=== PATIENT | male | born 1945 | race Caucasian/White ===

== ENCOUNTER 2016-04-05 14:09 | Inpatient (IN) | payer OTHER, MEDICARE ==
[~2016-04-05] VITALS: Ht 185.4 cm; Wt 70.6 kg
[2016-04-11] MEDS ORDERED: GLIP5TAB8 PO (10:10)
[2016-04-11] MEDS ORDERED: METF850T PO (10:10)
[2016-04-11] MEDS ORDERED: VITA100036 PO (10:10)
[2016-04-13] MEDS ORDERED: SODIUM CHLORID 0.9% 500 ML IV SCH (11:00)
[2016-04-13] MEDS ORDERED: ceFAZolin 1,000 MG/NS 100 ML IV SCH ×2 (11:00)
[2016-04-13] MEDS ORDERED: LACTATED RINGER'S 1000 ML IV SCH (11:00)
[2016-04-13] MEDS ORDERED: INSULIN HUMAN REGULAR 1,000 UNITS/10 ML VIAL SQ PRN (11:00)
[2016-04-13] MEDS ORDERED: METOPROLOL TARTRATE 25 MG TAB PO PRN (11:00)
[2016-04-13] MEDS ORDERED: DEXT 5%-NACL 0.9% 1000 ML INJ 1,000 ML IV SCH (11:00)
[2016-04-13] MEDS ORDERED: METRONIDAZOLE 500 MG/100 ML ISONTONIC SOLN IV SCH (11:00)
[2016-04-13] MEDS ORDERED: ALVIMOPAN 12 MG CAPSULE ONE (11:11)
[2016-04-13 11:13] VITALS: BP 157/97; PULSE 78; RESP 20; TEMP 97.6; O2SAT 99
[2016-04-13] MEDS ORDERED: ALVIMOPAN 12 MG CAPSULE - On Call PO SCH (11:45)
[2016-04-13] MEDS ORDERED: NEOSTIGMINE 3 MG/3 ML SYR IV ONE (12:00)
[2016-04-13] MEDS ORDERED: PROPOFOL 200 MG/20 ML AMP IV ONE (12:00)
[2016-04-13] MEDS ORDERED: SODIUM CHLOR 0.9% 1000 ML INJ 1,000 ML IV ONE (12:00)
[2016-04-13] MEDS ORDERED: ONDANSETRON HCL 4 MG/2 ML VIAL IV PUSH ONE (12:00)
[2016-04-13] MEDS ORDERED: fentaNYL CITRATE 250 MCG/5 ML AMP ONE (13:42)
[2016-04-13] MEDS ORDERED: ACETAMINOPHEN 1000 MG/100 ML VIAL IV ONE (13:42)
[2016-04-13] MEDS ORDERED: MIDAZOLAM HCL 2 MG/2 ML VIAL ONE (13:42)
[2016-04-13] MEDS ORDERED: FAMOTIDINE 20 MG/2 ML VIAL ONE (13:42)
[2016-04-13] MEDS ORDERED: HYDROmorphone HCL PF 2 MG/ML VIAL ONE (13:42)
[2016-04-13] MEDS ORDERED: GLUCAGON 1 MG/ML VIAL OTHER PRN (16:30)
[2016-04-13] MEDS ORDERED: ACETAMINOPHEN/HYDROcodone 325 MG/5 MG TAB PO PRN (16:30)
[2016-04-13] MEDS ORDERED: ZOLPIDEM TARTRATE 5 MG TAB PO PRN (16:30)
[2016-04-13] MEDS ORDERED: DEXTROSE 50% IN WATER 50 ML VIAL(D50) IV PUSH PRN (16:30)
[2016-04-13] MEDS ORDERED: Post-op Orders (for Pharmacy) MISC XX ONE (16:30)
[2016-04-13] MEDS ORDERED: POTASSIUM CHLOR 40 MEQ PREMIX 100 ML IV PRN (16:30)
[2016-04-13] MEDS ORDERED: SODIUM CHLORIDE 0.9% FLUSH 5 ML FLUSH IVF PRN (16:30)
[2016-04-13] MEDS ORDERED: POTASSIUM CHLOR 20 MEQ PREMIX 100 ML IV PRN (16:30)
[2016-04-13] MEDS ORDERED: NALOXONE HCL 0.4 MG/ML AMP IV PRN (16:30)
[2016-04-13] MEDS ORDERED: BENZOCAINE 6 MG/MENTHOL 10 MG LOZENGE SUCK-ON PRN (16:30)
[2016-04-13] MEDS ORDERED: *morphine SULFATE 8 MG/ML PERIprocedure ONLY ONE ×2 (16:38→18:23)
[2016-04-13] MEDS ORDERED: *MEPERIDINE 25 MG INJ VIAL PERIprocedural Use ONLY ONE (16:42)
[2016-04-13] MEDS: ceFAZolin 2 GM PREMIX 50 ML IV SCH (17:00)
[2016-04-13] MEDS ORDERED: D5-LR + KCL 20 MEQ INJ 1,000 ML ONE (17:26)
[2016-04-13 17:29] LABS: AUTOMATED NEUTROPHIL # 8.9 TH/MM3 (1.8-7.7); BASOPHIL # 0.2 TH/MM3 (0-0.2); BASOPHIL % 1.8 % (0.0-2.0); EOSINOPHIL % 0.3 % (0.0-4.0); HEMATOCRIT 36.6 % (39.0-51.0); LYMPH % 5.6 % (9.0-44.0); LYMPHOCYTE # 0.6 TH/MM3 (1.0-4.8); MEAN CELL VOLUME 83.7 FL (80.0-100.0); MEAN CORPUSCULAR HEMOGLOBIN 28.5 PG (27.0-34.0); MEAN CORPUSCULAR HGB CONC 34.1 % (32.0-36.0); MONO % 3.4 % (0.0-8.0); NEUT % 88.9 % (16.0-70.0); PLATELET COUNT 158 TH/MM3 (150-450); RED BLOOD COUNT 4.37 MIL/MM3 (4.50-5.90); RED CELL DISTRIBUTION WIDTH 14.9 % (11.6-17.2)
[2016-04-13 17:32] LABS: HEMO FLAGS AUTO DIFF
[2016-04-13] MEDS ORDERED: NS + KCL 20 MEQ INJ 1,000 ML ONE (17:35)
[2016-04-13 17:58] LABS: PLATELET ESTIMATE SMEAR NORMAL (NORMAL); PLATELET MORPHOLOGY NORMAL (NORMAL); SCAN/DIFF AUTO DIFF CONFIRMED
[2016-04-13] MEDS: METOCLOPRAMIDE HCL 10 MG/2 ML VIAL IVS SCH (18:00)
[2016-04-13] MEDS: POTASSIUM CHLORIDE INJ 20 MEQ in LACTATED RINGER'S 1000 ML INJ 1,000 ML IV SCH (18:00)
[2016-04-13 18:03] LABS: BICARBONATE 26.1 MEQ/L (21.0-32.0); POTASSIUM 3.1 MEQ/L (3.5-5.1)
[2016-04-13] MEDS: MORPHINE SULFATE 30 MG/30 ML PCA IV SCH (18:55)
[2016-04-13] MEDS ORDERED: *ONDANSETRON 4 MG VIAL PERIprocedural Use ONLY ONE (20:27)
[2016-04-13] MEDS: metroNIDAZOLE 500 MG INJ 100 ML IV SCH (20:46)
[2016-04-13] MEDS: SODIUM CHLORIDE 0.9% FLUSH 5 ML FLUSH IVF SCH (20:47)
[2016-04-13] MEDS: FUROSEMIDE 20 MG/2 ML VIAL IV SCH (20:49)
[2016-04-13] MEDS: INSULIN NovoLIN REGULAR SUPPLEMENTAL SCALE SQ SCH (21:00)
[2016-04-13] MEDS ORDERED: *PROMETHAZINE 25 MG/ML VIAL PERIprocedural use ONLY ONE (21:08)
[2016-04-13 21:30] VITALS: BP 153/80; PULSE 93; RESP 18; TEMP 97.5; O2SAT 98
[2016-04-13 22:00] VITALS: PULSE 96
[2016-04-13 23:00] VITALS: PULSE 97
[2016-04-14] VITALS (21 sets, daily range): BP systolic 128–164; BP diastolic 67–88; PULSE 93–100; RESP 18–20; TEMP 97.5–98.7; O2SAT 94–98
[2016-04-14] MEDS: ceFAZolin 2 GM PREMIX 50 ML IV SCH ×2 (01:00→09:00)
[2016-04-14] MEDS: POTASSIUM CHLORIDE INJ 20 MEQ in LACTATED RINGER'S 1000 ML INJ 1,000 ML IV SCH ×2 (05:06→12:42)
[2016-04-14] MEDS: metroNIDAZOLE 500 MG INJ 100 ML IV SCH ×2 (05:07→12:26)
[2016-04-14] MEDS: PCA - TOTAL MG MORPHINE DELIVERED PER SHIFT SCH ×3 (05:20→22:00)
[2016-04-14 05:41] LABS: AUTOMATED NEUTROPHIL # 9.5 TH/MM3 (1.8-7.7); BASOPHIL % 0.1 % (0.0-2.0); HEMATOCRIT 34.8 % (39.0-51.0); LYMPH % 3.5 % (9.0-44.0); LYMPHOCYTE # 0.4 TH/MM3 (1.0-4.8); MEAN CELL VOLUME 82.6 FL (80.0-100.0); MEAN CORPUSCULAR HEMOGLOBIN 28.4 PG (27.0-34.0); MEAN CORPUSCULAR HGB CONC 34.4 % (32.0-36.0); NEUT % 88.4 % (16.0-70.0); PLATELET COUNT 180 TH/MM3 (150-450); RED BLOOD COUNT 4.21 MIL/MM3 (4.50-5.90); RED CELL DISTRIBUTION WIDTH 15.1 % (11.6-17.2); WHITE BLOOD COUNT 10.8 TH/MM3 (4.0-11.0)
[2016-04-14 05:43] LABS: HEMO FLAGS AUTO DIFF
[2016-04-14 05:52] LABS: POTASSIUM 3.9 MEQ/L (3.5-5.1)
[2016-04-14] MEDS: METOCLOPRAMIDE HCL 10 MG/2 ML VIAL IVS SCH ×4 (06:42→18:00)
[2016-04-14] MEDS: INSULIN NovoLIN REGULAR SUPPLEMENTAL SCALE SQ SCH ×4 (06:43→21:53)
[2016-04-14 07:59] LABS: SCAN/DIFF AUTO DIFF CONFIRMED
[2016-04-14] MEDS: FUROSEMIDE 20 MG/2 ML VIAL IV SCH ×2 (09:00→21:17)
[2016-04-14] MEDS: PANTOPRAZOLE SODIUM 40 MG VIAL IVP SCH (09:00)
[2016-04-14] MEDS ORDERED: ALVIMOPAN 12 MG CAPSULE - Post-op dosing PO SCH (09:00)
[2016-04-14] MEDS: ALVIMOPAN 12 MG CAPSULE PO SCH ×2 (12:42→22:21)
[2016-04-14] MEDS: SODIUM CHLORIDE 0.9% FLUSH 5 ML FLUSH IVF SCH ×2 (12:43→21:17)
--- NOTE | 2016-04-14 14:43 | MP ---
cc: GILDA MOE MD,AGNIESZKA TORRES,KARSON CHAPPELL,ABBE Qureshi M.D. DATE OF SURGERY: 04/13/2016 PREOPERATIVE DIAGNOSIS Rectal carcinoma. POSTOPERATIVE DIAGNOSIS Rectal carcinoma. PROCEDURE Rectosigmoidectomy with very low anterior resection and anastomosis. Diverting loop ileostomy ANESTHESIA Endotracheal. SURGEON Dr. Chappell WATER RESOURCE ENGINEER SURGEON Dr. Arceo ESTIMATED BLOOD LOSS 100 cc. OPERATING TIME One hour and 35 minutes. 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 I first saw him back in January and then did colonoscopy on him about two weeks ago to ascertain whether there was any residual carcinoma present. At that time there was ulceration in the mid rectum, approximately 5 cm long. Multiple biopsies were taken that were benign but this appeared to be still bulky in the wall of the rectum. For this reason resection was recommended. At surgery exploration of the abdominal cavity revealed that the liver was palpably normal other than multiple small liver cysts throughout the liver. The gallbladder was palpably normal as was the colon and small bowel. The lesion was palpable in the cul-de-sac. Dissection was taken down to the pelvic floor and a near coloanal anastomosis was done with an Ethicon ILS 33 stapler. A diverting loop ileostomy was also done. OPERATIVE TECHNIQUE The patient was placed on the table in the supine position. After adequate general endotracheal anesthesia the legs were placed in the perineolithotomy position and the abdomen and perineum were prepped and draped in the usual manner. A transverse infraumbilical skin incision was made, carried down through subcutaneous tissue and the rectus muscles and the peritoneal cavity was entered with the above-mentioned findings. Our attention was turned to the sigmoid colon which was extremely redundant and it was mobilized along its peritoneal reflection. The left ureter was identified and protected at all times. The dissection was taken up to the splenic flexure but not including the splenic flexure. Next, the superior hemorrhoidal vessels were taken and they were doubly clamped, cut and doubly ligated with 0 Vicryl ligature. The inferior mesenteric vein was left intact. Next, the lateral pelvic peritoneum was incised bilaterally and the retrorectal space was entered and the retrorectal space was dissected down posteriorly to the rectal floor and then laterally. The seminal vesicles were identified in the right and left anterior positions and dissected free of the rectum and the rectum was mobilized anteriorly posterior to the prostate gland and the dissection was taken down to the pelvic floor. Dr. Arceo then did sigmoidoscopy examination identifying the lowermost border of the tumor in the mid rectum and we went approximately 4-5 cm below this area and the mesorectum was basically totally excised and the rectum was cleared and the rectum was closed with a TX 60 green staple height stapler and the rectum was divided. Next, the sigmoid colon marginal vessels were clamped, cut and ligated and the pursestring stapling device was placed on the sigmoid colon and the specimen was divided and then opened by Dr. Arceo identifying the lesion with adequate 4-5 cm margin. Next, the anvil of the 33 EEA was placed in the proximal bowel. The pursestring was tied. Dr. Arceo then went below with the EEA instrument and placed it into the rectum, trocar brought out through the anterior portion of the staple line and then the instrument was connected, closed and fired creating the circular anastomosis. Dr. Arceo then did proctosigmoidoscopy examination insufflating air into the rectum and saline solution in the pelvis and no air leaks were identified. The blood supply was excellent. After hemostasis was obtained some Fibrillar was placed posterior to the prostate and laterally. Irrigation of the pelvis was done with about three liters of saline solution and aspirated dry. A flat Royer drain was placed in the pelvis posterior to the rectum and brought out through a separate stab wound in the right lower quadrant. A completely diverting loop ileostomy was done in the right upper quadrant stapling the distal limb of the ileum closed with a TX 60 blue staple height stapler. A stoma site was created and the ileum was brought out through the stoma site. Next, the bowels were replaced in the abdominal cavity in an coal loader manner and the abdominal cavity was closed in layers using double-stranded #1 PDS for the posterior rectus sheath. The muscle layer was irrigated thoroughly with saline solution and the anterior rectus sheath was closed with double-stranded #1 PDS as well. The subcutaneous tissue was irrigated thoroughly with saline solution and then the skin was closed with running 3-0 Vicryl subcuticular suture. The ileostomy was matured with interrupted 3-0 Vicryl sutures and a 57 mm ileostomy appliance was placed. Sponge, needle and instrument counts were reported as correct. The estimated blood loss was 100 cc. Operating time was one hour and 35 minutes. The patient tolerated the procedure well and left the operating room in good condition. MD ANTOINETTE Almodovar/AXEL /4:50 PM /2:12 PM MTDLynda
--- NOTE | 2016-04-14 16:25 | HHI.PR ---
Subjective Remarks No more Nausea. No Vomiting. Stooling thru Ileostomy. Tolerating CLD Objective Vital Signs Date Time Temp Pulse Resp B/P Pulse Ox O2 Delivery O2 Flow Rate FiO2 04/14/16 11:50 97 04/14/16 07:40 96 21 04/14/16 07:21 98.5 98 18 142/72 97 04/14/16 06:00 97 04/14/16 05:20 18 04/14/16 05:00 97 04/14/16 04:00 97.5 97 18 150/74 97 04/14/16 04:00 96 04/14/16 03:00 100 04/14/16 02:00 98 04/14/16 01:00 97 04/14/16 00:00 96 04/14/16 00:00 97.9 97 18 164/88 98 04/13/16 23:00 97 04/13/16 22:00 96 04/13/16 21:30 93 04/13/16 21:30 97.5 93 18 153/80 98 04/13/16 21:00 97.8 97 15 153/89 98 Nasal Cannula 3 04/13/16 20:00 97 15 158/99 98 Nasal Cannula 3 04/13/16 19:30 97 15 164/91 98 Nasal Cannula 3 04/13/16 19:00 94 15 168/89 98 Nasal Cannula 3 04/13/16 18:55 14 04/13/16 18:30 90 16 167/86 99 Nasal Cannula 3 04/13/16 18:00 85 16 178/93 99 Nasal Cannula 3 04/13/16 17:45 80 16 173/93 99 Nasal Cannula 3 04/13/16 17:30 81 16 173/89 99 Nasal Cannula 3 04/13/16 17:15 79 15 180/90 98 Nasal Cannula 3 04/13/16 17:00 76 15 174/85 98 Nasal Cannula 3 04/13/16 16:41 97.3 77 14 159/76 98 Nasal Cannula 3 I/O 04/13/16 04/13/16 04/13/16 04/14/16 04/14/16 04/14/16 07:00 15:00 23:00 07:00 15:00 23:00 Intake Total 2000 ml 1292 ml Output Total 750 ml 1900 ml Balance 1250 ml -608 ml Intake Oral 0 ml IV Total 1292 ml Other 2000 ml Output Urine Total 650 ml 1800 ml Stool Total 50 ml Drainage Total 50 ml Estimated Blood Loss 100 ml Result Diagram: 04/14/1643904/14/16439 Objective Remarks VS-S Abd: flat,soft,dressing dry I&Os-OK Labs-OK Assessment and Plan Assessment and Plan Stable POD#1 Transfer to 7N,Decrease IVs,Ambulate, Remove SIGNAL INTELLIGENCE/ELECTRONIC WARFARE and bustamante tomorrow. FLD ordered for AM. Harry Chappell MD Apr 14, 2016 16:25
[2016-04-14] MEDS: ONDANSETRON HCL 4 MG/2 ML VIAL IV PRN (16:30)
[2016-04-14] MEDS: MORPHINE SULFATE 30 MG/30 ML PCA IV SCH (21:15)
[2016-04-15] VITALS (7 sets, daily range): BP systolic 140–172; BP diastolic 72–86; PULSE 78–100; RESP 14–20; TEMP 98–98.8; O2SAT 94–97
[2016-04-15] MEDS: METOCLOPRAMIDE HCL 10 MG/2 ML VIAL IVS SCH ×5 (00:32→23:57)
[2016-04-15] MEDS: ONDANSETRON HCL 4 MG/2 ML VIAL IV PRN ×2 (05:28→18:36)
[2016-04-15] MEDS: PCA - TOTAL MG MORPHINE DELIVERED PER SHIFT SCH ×3 (05:29→22:00)
[2016-04-15 05:30] LABS: AUTOMATED NEUTROPHIL # 8.8 TH/MM3 (1.8-7.7); BASOPHIL % 0.2 % (0.0-2.0); EOSINOPHIL % 0.1 % (0.0-4.0); HEMATOCRIT 30.9 % (39.0-51.0); HEMO FLAGS DIFF FINAL; LYMPHOCYTE # 0.5 TH/MM3 (1.0-4.8); MEAN CELL VOLUME 83.8 FL (80.0-100.0); MEAN CORPUSCULAR HEMOGLOBIN 28.6 PG (27.0-34.0); MEAN CORPUSCULAR HGB CONC 34.2 % (32.0-36.0); MONO % 6.7 % (0.0-8.0); PLATELET COUNT 166 TH/MM3 (150-450); RED BLOOD COUNT 3.69 MIL/MM3 (4.50-5.90)
[2016-04-15] MEDS: INSULIN NovoLIN REGULAR SUPPLEMENTAL SCALE SQ SCH ×4 (05:35→23:11)
[2016-04-15 05:51] LABS: BICARBONATE 31.3 MEQ/L (21.0-32.0); POTASSIUM 3.7 MEQ/L (3.5-5.1)
[2016-04-15] MEDS: PANTOPRAZOLE SODIUM 40 MG VIAL IVP SCH (09:07)
[2016-04-15] MEDS: ALVIMOPAN 12 MG CAPSULE PO SCH ×2 (09:07→23:02)
[2016-04-15] MEDS: KETOROLAC TROMETHAMINE 30 MG/ML (IVP) VIAL IVP PRN ×2 (09:07→18:36)
[2016-04-15] MEDS: SODIUM CHLORIDE 0.9% FLUSH 5 ML FLUSH IVF SCH ×2 (09:08→21:11)
[2016-04-15] MEDS: FUROSEMIDE 20 MG/2 ML VIAL IV SCH ×2 (09:08→21:10)
--- NOTE | 2016-04-15 11:18 | HHI.PR ---
Subjective Remarks C/R Surg POD #2 afebrile, VSS UO good c/0 nausea, dry heaves Objective - Vital Signs Date Time Temp Pulse Resp B/P Pulse Ox O2 Delivery O2 Flow Rate FiO2 04/15/16 08:00 98.6 100 18 172/86 94 04/14/16 07:40 21 04/13/16 21:00 Nasal Cannula 3 Result Diagram: 04/15/16 0454 04/15/16 0454 Objective Remarks PE alert Abd - soft, wound dry, some flatus, mild tympany A/P Assessment and Plan Imp: ileus, ?pain med nausea OOB cont IVF tx to floor Mario Shah MD Apr 15, 2016 11:18
[2016-04-15] MEDS ORDERED: ACETAMINOPHEN 1000 MG/100 ML VIAL IV PRN (11:30)
[2016-04-15] MEDS: POTASSIUM CHLORIDE INJ 20 MEQ in LACTATED RINGER'S 1000 ML INJ 1,000 ML IV SCH ×2 (12:42→23:01)
[2016-04-16] VITALS (7 sets, daily range): BP systolic 115–178; BP diastolic 66–92; PULSE 52–99; RESP 15–22; TEMP 98.1–98.7; O2SAT 95–98
[2016-04-16] MEDS: ENALAPRILAT 1.25 MG/ML VIAL IV PRN ×2 (05:17→17:06)
[2016-04-16] MEDS: METOCLOPRAMIDE HCL 10 MG/2 ML VIAL IVS SCH (05:17)
[2016-04-16] MEDS: PCA - TOTAL MG MORPHINE DELIVERED PER SHIFT SCH (06:00)
[2016-04-16] MEDS: INSULIN NovoLIN REGULAR SUPPLEMENTAL SCALE SQ SCH ×4 (06:22→21:00)
[2016-04-16] MEDS: KETOROLAC TROMETHAMINE 30 MG/ML (IVP) VIAL IVP PRN (06:30)
[2016-04-16] MEDS: PANTOPRAZOLE SODIUM 40 MG VIAL IVP SCH (08:12)
[2016-04-16] MEDS: ALVIMOPAN 12 MG CAPSULE PO SCH ×2 (08:12→21:31)
[2016-04-16] MEDS: SODIUM CHLORIDE 0.9% FLUSH 5 ML FLUSH IVF SCH ×2 (08:13→21:36)
[2016-04-16] MEDS: FUROSEMIDE 20 MG/2 ML VIAL IV SCH (08:13)
[2016-04-16] MEDS: POTASSIUM CHLORIDE INJ 20 MEQ in LACTATED RINGER'S 1000 ML INJ 1,000 ML IV SCH (09:37)
[2016-04-16] MEDS ORDERED: METOCLOPRAMIDE HCL 10 MG/2 ML VIAL IVS PRN (10:45)
--- NOTE | 2016-04-16 21:11 | HHI.PR ---
Subjective Remarks C/R Surg POD #3 afebrile, VSS UO good less nausea Objective - Vital Signs Date Time Temp Pulse Resp B/P Pulse Ox O2 Delivery O2 Flow Rate FiO2 04/16/16 16:00 98.3 99 15 178/89 98 04/14/16 07:40 21 04/13/16 21:00 Nasal Cannula 3 Result Diagram: 04/15/16 0454 04/15/16453 Objective Remarks PE alert Abd - soft, wound dry, some flatus, less tympany A/P Assessment and Plan Imp: OOB cont IVF start PO Mario Shah MD Apr 16, 2016 21:11
[2016-04-17] MEDS: POTASSIUM CHLORIDE INJ 20 MEQ in LACTATED RINGER'S 1000 ML INJ 1,000 ML IV SCH (02:23)
[2016-04-17 03:00] VITALS: BP 167/92; PULSE 86; RESP 18; TEMP 98.5; O2SAT 95
[2016-04-17] MEDS: ACETAMINOPHEN/HYDROcodone 325 MG/5 MG TAB PO PRN ×2 (06:38→06:41)
[2016-04-17] MEDS: INSULIN NovoLIN REGULAR SUPPLEMENTAL SCALE SQ SCH ×2 (06:42→11:11)
[2016-04-17 07:32] VITALS: BP 126/86; PULSE 103; RESP 18; TEMP 97.7; O2SAT 96
[2016-04-17] MEDS: SODIUM CHLORIDE 0.9% FLUSH 5 ML FLUSH IVF SCH (08:04)
[2016-04-17] MEDS: PANTOPRAZOLE SODIUM 40 MG VIAL IVP SCH (08:07)
[2016-04-17] MEDS: ALVIMOPAN 12 MG CAPSULE PO SCH (08:07)
--- NOTE | 2016-04-17 10:30 | HHI.FF ---
Face to Face Verification Diagnosis: (1) Cancer of rectum (2) Ileostomy in place (3) Status post partial resection of colon Home Health Nursing Order: Medical education Wound care and dressing changes Instructions: Measure Ileostomy output daily. If greater than 1200ml/24hrs start Imodium 2, 4 times daily I have seen patient Daniel Moreno on 04/17/16. My clinical findings support the need for the requested home health care services because: Deconditioned w/ increased weakness Limited ability to care for self High risk of falls I certify that my clinical findings support that this patient is homebound because: Post-op weakness Unsteady gait/balance Unsafe to leave home unassisted Need for psychosocial assistance Harry Chappell MD Apr 17, 2016 10:30
--- NOTE | 2016-04-17 10:33 | HHI.PR ---
Subjective . Doing well all instructions given. Follow Ileostomy outputs closely. Appt 2 weeks. Drain removed Harry Chappell MD Apr 17, 2016 10:33
[2016-04-17 11:26] VITALS: BP 141/66; PULSE 99; RESP 18; TEMP 98; O2SAT 96
--- NOTE | 2016-06-10 20:04 | MD ---
cc: GILDA MOE MD, WALTER A., M.D. TOLLAND,ABBE Qureshi M.D. KARSON TORRES ADMISSION DATE: 04/13/2016 DISCHARGE DATE: 04/17/2016 ADMISSION DIAGNOSIS Rectal cancer. DISCHARGE DIAGNOSIS Rectal cancer. OPERATIVE PROCEDURE 04/13/2016 rectosigmoidectomy, very low anterior resection with anastomosis and diverting loop ileostomy. HISTORY This patient was found to have a rectal cancer and for this reason underwent preoperative radiation therapy, chemotherapy for a good size circumferential cancer of the mid rectum. I first saw him back in January of 2016. Did a colonoscopy on him about 2 weeks ago to ascertain whether he has any residual carcinoma present after the radiation, chemotherapy. At that time there was ulceration of the mid rectum approximately 5 cm long. Multiple biopsies were taken and were benign but this still appeared to be a very bulky lesion in the wall of the rectum. For this reason resection was recommended. LABORATORY DATA Pathology report on the removed specimen revealed that the rectum still had invasive carcinoma. It was well-differentiated, invaded through the muscular propria into the pericolonic adipose tissue. All margins were uninvolved by invasive carcinoma. The tumor was 3 cm from the distal resection margin. There was treatment effect present with residual cancer with evident tumor regression but more than single cells or rare groups of cells were seen. This was a T3 N0 lesion, 11 lymph nodes were identified. HOSPITAL COURSE The patient was admitted to the hospital on 04/13/2016, underwent surgery as indicated. On the first postoperative day the patient was doing well and he began having some stool through the ileostomy, was started on clear liquid diet. On the second postoperative day he continued to do well and his diet was advanced to a full liquid diet. He was having some nausea, was felt to be due to his pain medications. On the third postoperative day he continued to improve and his diet was slowly advanced and he was discharged from the hospital on postoperative day #4 in good condition. He is instructed to follow his ileostomy outputs closely and given an appointment for 2 weeks. His drain was removed prior to discharge. The patient was instructed to do no driving for 2 weeks, do no heavy lifting for 6 weeks and to call me with any problems. MD ANTOINETTE Almodovar/ELIZABETH /12:49 PM /7:49 PM
== END 2016-04-17 15:51 | disposition home health service (06) | DRG 331 ==
LOC: HSDI 04-13 09:51 → HCPC 04-13 21:15
PROVIDERS: ADMIT Colon & Rectal Surgery; ATTEND Colon & Rectal Surgery
PROC: 0DBN0ZZ Excision of Sigmoid Colon, Open Approach (ICD-10-PCS; 2016-04-13)
PROC: 0D1B0Z4 Bypass Ileum to Cutaneous, Open Approach (ICD-10-PCS; principal; 2016-04-13 13:50)
PROC: 0DTP0ZZ Resection of Rectum, Open Approach (ICD-10-PCS; 2016-04-13 13:50)
DX: C20 Malignant neoplasm of rectum (principal); E11.8 Type 2 diabetes mellitus with unspecified complications; Z79.84 Long term (current) use of oral hypoglycemic drugs; Z86.73 Personal history of transient ischemic attack (TIA), and cerebral infarction without residual deficits; Z92.3 Personal history of irradiation; Z92.21 Personal history of antineoplastic chemotherapy
CPT/HCPCS: 36415; 71020; 80048; 80053; 81001; 82378; 82948; 85025; 85610; 85730; 86850; 86900; 86901; 88309; 93005; 94150; C9113; J0131; J0690; J1170; J1885; J1940; J2175; J2250; J2270; J2405; J2550; J2710; J2765; J3010; J3480; J7030; J7120

== ENCOUNTER → 2016-04-11 | Outpatient (CLI) | payer OTHER ==
[~2016-04-11] MED LIST: GLIP5TAB8 PO; HYDR-3516 PO; METF850T PO; VITA100036 PO
[2016-04-11 10:14] LABS: BLOOD, URINE NEG (NEG); COMMENT (UR) CULT NOT INDICATED; CULTURE IF INDICATED CULT NOT INDICATED; GLUCOSE,URINE 300 mg/dL (NEG); HYALINE CAST, URINE 4 /lpf (RARE); KETONE, URINE NEG (NEG); MUCUS URINE FEW /lpf (OCC); NITRITE,URINE NEG (NEG); URINE COLOR YELLOW (YELLW/STRAW)
[2016-04-11 10:20] LABS: AUTOMATED NEUTROPHIL # 2.5 TH/MM3 (1.8-7.7); BASOPHIL % 0.9 % (0.0-2.0); EOSINOPHIL # 0.2 TH/MM3 (0-0.4); EOSINOPHIL % 5.6 % (0.0-4.0); HEMATOCRIT 36.7 % (39.0-51.0); LYMPH % 15.8 % (9.0-44.0); LYMPHOCYTE # 0.6 TH/MM3 (1.0-4.8); MEAN CELL VOLUME 83.2 FL (80.0-100.0); MEAN CORPUSCULAR HEMOGLOBIN 28.5 PG (27.0-34.0); MEAN CORPUSCULAR HGB CONC 34.2 % (32.0-36.0); MONO % 9.9 % (0.0-8.0); NEUT % 67.8 % (16.0-70.0); PLATELET COUNT 170 TH/MM3 (150-450); RED BLOOD COUNT 4.41 MIL/MM3 (4.50-5.90); RED CELL DISTRIBUTION WIDTH 15.6 % (11.6-17.2); WHITE BLOOD COUNT 3.6 TH/MM3 (4.0-11.0)
[2016-04-11 10:21] LABS: APTT (PATIENT) 26.5 SEC (24.3-30.1); HEMO FLAGS AUTO DIFF
[2016-04-11 10:33] LABS: ANION GAP 6 MEQ/L (5-15); AST (GOT) 10 U/L (15-37); BICARBONATE 31.5 MEQ/L (21.0-32.0); BLOOD UREA NITROGEN 14 MG/DL (7-18); CHLORIDE 105 MEQ/L (98-107); GLOMERULAR FILTRATION RATE 104 ML/MIN (>89); GLUCOSE,FASTING 179 MG/DL (74-99); POTASSIUM 4.2 MEQ/L (3.5-5.1); SODIUM (NA) 142 MEQ/L (136-145)
[2016-04-11 10:36] LABS: ALKALINE PHOSPHATASE 115 U/L (45-117); ALT (GPT) 17 U/L (12-78); TOTAL BILIRUBIN ADULT 1.2 MG/DL (0.2-1.0)
--- NOTE | 2016-04-11 10:51 | RADRPT ---
EXAM DATE/TIME: 04/11/2016 10:38 [place] COMPARISON: No previous studies available for comparison. INDICATIONS : Evaluate for pneumonia, pneumothorax or communicable disease. Pre-op for a descending colectomy on . MEDICAL HISTORY : Diabetes mellitus type II. SURGICAL HISTORY : None. ENCOUNTER: Initial ACUITY: 1 day PAIN SCORE: 0/10 LOCATION: Bilateral chest FINDINGS: PA and lateral views of the chest demonstrate the lungs to be symmetrically aerated without evidence of mass, infiltrate or effusion. The cardiomediastinal contours are unremarkable. Osseous structure s are intact. CONCLUSION: No acute cardiopulmonary process to explain current clinical symptoms. Deandre Paulino MD on April 11, 2016 at 10:48 Board Certified Radiologist. This report was verified electronically.
[2016-04-11 11:21] LABS: PLATELET ESTIMATE SMEAR NORMAL (NORMAL); PLATELET MORPHOLOGY NORMAL (NORMAL); SCAN/DIFF AUTO DIFF CONFIRMED
--- NOTE | 2016-04-11 17:36 | EKG ---
Date Performed: 04/11/2016 Time Performed: 10:03:16 PTAGE: 70 years EKG: Sinus rhythm RIGHT BUNDLE BRANCH BLOCK ABNORMAL ECG NO PREVIOUS TRACING DOCTOR: Yash Velez Interpretating Date/Time 04/11/2016 17:35:27
== END ==
LOC: CPRE 09:37
PROVIDERS: ATTEND Colon & Rectal Surgery
DX: Z01.810 Encounter for preprocedural cardiovascular examination (principal); Z01.812 Encounter for preprocedural laboratory examination; C20 Malignant neoplasm of rectum; I45.10 Unspecified right bundle-branch block
CPT/HCPCS: 36415; 71020; 80053; 81001; 82378; 85025; 85610; 85730; 93005

== ENCOUNTER 2016-06-27 15:45 | Inpatient (IN) | payer OTHER, MEDICARE ==
[~2016-06-27] VITALS: Ht 185.4 cm; Wt 68.9 kg
[~2016-06-27 15:45] MED LIST changes: -HYDR-3516 PO
[2016-07-06] MEDS ORDERED: PROPOFOL 200 MG/20 ML AMP IV ONE (10:23)
[2016-07-06] MEDS ORDERED: ePHEDrine/NS 25 MG/5 ML SYR IV ONE (10:23)
[2016-07-06] MEDS ORDERED: NEOSTIGMINE 3 MG/3 ML SYR IV ONE (10:24)
[2016-07-06] MEDS ORDERED: PHENYLEPH/NS 1000 MCG/10 ML SYR IV ONE (10:26)
[2016-07-06] MEDS ORDERED: ONDANSETRON HCL 4 MG/2 ML VIAL IV PUSH ONE (10:28)
[2016-07-06] MEDS ORDERED: LACTATED RINGER'S 1000 ML INJ 1,000 ML IV ONE (10:29)
[2016-07-06] MEDS ORDERED: ALVIMOPAN 12 MG CAPSULE - On Call PO SCH (11:00)
[2016-07-06] MEDS ORDERED: INSULIN HUMAN REGULAR 1,000 UNITS/10 ML VIAL SQ PRN (11:15)
[2016-07-06] MEDS ORDERED: LACTATED RINGER'S 1000 ML IV PRN (11:15)
[2016-07-06] MEDS ORDERED: ceFAZolin 1,000 MG/NS 100 ML IV SCH ×2 (11:15)
[2016-07-06] MEDS ORDERED: SODIUM CHLORID 0.9% 500 ML IV PRN (11:15)
[2016-07-06] MEDS ORDERED: METOPROLOL TARTRATE 25 MG TAB PO PRN (11:15)
[2016-07-06] MEDS ORDERED: CHLORHEXIDINE GLUCONATE 2 % 1 PACK (2 CLOTHS) TOPICAL PRN (11:15)
[2016-07-06] MEDS ORDERED: POVIDONE IODINE 5% (ANTISEPSIS KIT) 4 APPLICATIONS EACH NARE PRN (11:15)
[2016-07-06 11:29] VITALS: BP 112/80; PULSE 84; RESP 20; TEMP 97.7; O2SAT 100
[2016-07-06] MEDS ORDERED: DEXTROSE 5% IN WATE 1000ML INJ 1,000 ML IV SCH (12:00)
[2016-07-06] MEDS ORDERED: METRONIDAZOLE 500 MG/100 ML ISONTONIC SOLN IV SCH (12:00)
[2016-07-06] MEDS ORDERED: MIDAZOLAM HCL 2 MG/2 ML VIAL ONE (13:29)
[2016-07-06] MEDS ORDERED: FAMOTIDINE 20 MG/2 ML VIAL ONE (13:29)
[2016-07-06] MEDS ORDERED: *morphine SULFATE 8 MG/ML PERIprocedure ONLY ONE ×2 (15:04→16:16)
[2016-07-06] MEDS ORDERED: fentaNYL CITRATE 250 MCG/5 ML AMP ONE (15:06)
[2016-07-06] MEDS: D5-LR + KCL 20 MEQ INJ 1,000 ML IV SCH ×2 (15:12→21:52)
[2016-07-06] MEDS ORDERED: MORPHINE SULFATE 30 MG/30 ML PCA IV SCH (15:15)
[2016-07-06] MEDS ORDERED: DEXTROSE 50% IN WATER 50 ML VIAL(D50) IV PUSH PRN (15:15)
[2016-07-06] MEDS ORDERED: POTASSIUM CHLOR 40 MEQ PREMIX 100 ML IV PRN (15:15)
[2016-07-06] MEDS ORDERED: GLUCAGON 1 MG/ML VIAL OTHER PRN (15:15)
[2016-07-06] MEDS ORDERED: ACETAMINOPHEN/HYDROcodone 325 MG/5 MG TAB PO PRN ×2 (15:15)
[2016-07-06] MEDS ORDERED: BENZOCAINE 6 MG/MENTHOL 10 MG LOZENGE BUCCAL PRN (15:15)
[2016-07-06] MEDS ORDERED: Post-op Orders (for Pharmacy) MISC XX ONE (15:15)
[2016-07-06] MEDS ORDERED: ENALAPRILAT 1.25 MG/ML VIAL IV PRN (15:15)
[2016-07-06] MEDS ORDERED: SODIUM CHLORIDE 0.9% FLUSH 10 ML FLUSH IV FLUSH PRN (15:15)
[2016-07-06] MEDS ORDERED: POTASSIUM CHLOR 20 MEQ PREMIX 100 ML IV PRN (15:15)
[2016-07-06] MEDS ORDERED: NALOXONE HCL 0.4 MG/ML AMP IV PRN (15:15)
[2016-07-06] MEDS ORDERED: KETOROLAC TROMETHAMINE 30 MG/ML (IVP) VIAL IVP PRN (15:15)
[2016-07-06 15:59] LABS: AUTOMATED NEUTROPHIL # 3.6 TH/MM3 (1.8-7.7); BASOPHIL % 0.5 % (0.0-2.0); EOSINOPHIL # 0.1 TH/MM3 (0-0.4); EOSINOPHIL % 2.4 % (0.0-4.0); HEMATOCRIT 32.7 % (39.0-51.0); HEMO FLAGS DIFF FINAL; LYMPH % 17.7 % (9.0-44.0); LYMPHOCYTE # 0.9 TH/MM3 (1.0-4.8); MEAN CELL VOLUME 77.7 FL (80.0-100.0); MEAN CORPUSCULAR HEMOGLOBIN 26.2 PG (27.0-34.0); MEAN CORPUSCULAR HGB CONC 33.7 % (32.0-36.0); MONO % 7.9 % (0.0-8.0); NEUT % 71.5 % (16.0-70.0); PLATELET COUNT 171 TH/MM3 (150-450); WHITE BLOOD COUNT 5.1 TH/MM3 (4.0-11.0)
[2016-07-06] MEDS ORDERED: DO NOT ADM ANY ANTICOAGULANT DRUGS PRN (16:00)
[2016-07-06 16:11] LABS: BICARBONATE 25.9 MEQ/L (21.0-32.0); POTASSIUM 3.9 MEQ/L (3.5-5.1)
[2016-07-06] MEDS: INSULIN NovoLIN REGULAR SUPPLEMENTAL SCALE SQ SCH ×2 (16:15→23:00)
[2016-07-06] MEDS ORDERED: *ONDANSETRON 4 MG VIAL PERIprocedural Use ONLY ONE (16:22)
[2016-07-06] MEDS: METOCLOPRAMIDE HCL 10 MG/2 ML VIAL IVS SCH (16:37)
[2016-07-06 20:30] VITALS: BP 136/77; PULSE 88; RESP 14; TEMP 97.4; O2SAT 100
[2016-07-06] MEDS: SODIUM CHLORIDE 0.9% FLUSH 10 ML FLUSH IV FLUSH SCH (20:46)
[2016-07-06] MEDS: metroNIDAZOLE 500 MG INJ 100 ML IV SCH (20:46)
[2016-07-06 21:00] VITALS: PULSE 82
[2016-07-06 22:00] VITALS: PULSE 82
[2016-07-06] MEDS: ONDANSETRON HCL 4 MG/2 ML VIAL IV PUSH PRN (22:47)
[2016-07-06 23:00] VITALS: BP 142/80; PULSE 84; PULSE 85; RESP 16; TEMP 97.9; O2SAT 100
[2016-07-06] MEDS: PCA - TOTAL MG MORPHINE DELIVERED PER SHIFT SCH (23:00)
[2016-07-07] VITALS (12 sets, daily range): BP systolic 120–136; BP diastolic 65–71; PULSE 80–95; RESP 14–20; TEMP 98–98.5; O2SAT 96–99
[2016-07-07] MEDS: METOCLOPRAMIDE HCL 10 MG/2 ML VIAL IVS SCH ×4 (00:53→17:08)
[2016-07-07] MEDS: metroNIDAZOLE 500 MG INJ 100 ML IV SCH ×2 (05:40→12:40)
[2016-07-07] MEDS: PCA - TOTAL MG MORPHINE DELIVERED PER SHIFT SCH (06:00)
[2016-07-07] MEDS: INSULIN NovoLIN REGULAR SUPPLEMENTAL SCALE SQ SCH ×4 (06:50→20:45)
[2016-07-07] MEDS: ONDANSETRON HCL 4 MG/2 ML VIAL IV PUSH PRN ×2 (06:55→12:40)
[2016-07-07 06:56] LABS: AUTOMATED NEUTROPHIL # 7.4 TH/MM3 (1.8-7.7); BASOPHIL % 0.3 % (0.0-2.0); EOSINOPHIL % 0.1 % (0.0-4.0); HEMATOCRIT 31.9 % (39.0-51.0); HEMO FLAGS DIFF FINAL; LYMPH % 5.8 % (9.0-44.0); LYMPHOCYTE # 0.5 TH/MM3 (1.0-4.8); MEAN CELL VOLUME 77.7 FL (80.0-100.0); MEAN CORPUSCULAR HGB CONC 33.4 % (32.0-36.0); MONO % 7.8 % (0.0-8.0); PLATELET COUNT 163 TH/MM3 (150-450); RED CELL DISTRIBUTION WIDTH 15.1 % (11.6-17.2); WHITE BLOOD COUNT 8.7 TH/MM3 (4.0-11.0)
[2016-07-07] MEDS: D5-LR + KCL 20 MEQ INJ 1,000 ML IV SCH ×2 (07:00→16:07)
[2016-07-07 07:20] LABS: BICARBONATE 27.3 MEQ/L (21.0-32.0); POTASSIUM 4.1 MEQ/L (3.5-5.1)
[2016-07-07] MEDS ORDERED: ALVIMOPAN 12 MG CAPSULE - Post-op dosing PO SCH (09:00)
[2016-07-07] MEDS: PANTOPRAZOLE SODIUM 40 MG VIAL IVP SCH (09:36)
[2016-07-07] MEDS: ALVIMOPAN 12 MG CAPSULE - Post-op dosing PO SCH ×2 (09:36→20:44)
--- NOTE | 2016-07-07 17:27 | HHI.PR ---
Subjective Remarks C/R Surg POD# 1 afebrile, VSS dry heaves - ?BOX SPRING FRAME BUILDER pump voiding OK Objective - Vital Signs Date Time Temp Pulse Resp B/P Pulse Ox O2 Delivery O2 Flow Rate FiO2 07/07/16 15:33 15 07/07/16 12:00 98.2 84 136/71 98 07/06/16 19:00 Nasal Cannula 2 Result Diagram: 07/07/16 0550 07/07/16 0550 Objective Remarks PE Abd - full, +tympany, wound dry A/P Assessment and Plan Imp: stable post-op OOB try PO slowly' DC BOX SPRING FRAME BUILDER Mario Shah MD July 07, 2016 17:27
[2016-07-07] MEDS: SODIUM CHLORIDE 0.9% FLUSH 10 ML FLUSH IV FLUSH SCH (20:45)
[2016-07-07] MEDS ORDERED: ALVIMOPAN 12 MG CAPSULE PO SCH (21:00)
--- NOTE | 2016-07-07 21:58 | MP ---
cc: MARIA ANTONIA CHAPPELL DR., DATE OF SURGERY 07/06/16 PREOPERATIVE DIAGNOSIS Ileostomy. POSTOPERATIVE DIAGNOSIS Ileostomy PROCEDURE Small bowel resection with closure of ileostomy. ANESTHESIA General endotracheal SURGEON Dr. Jelena Chappell AUTOMOBILE REPOSSESSOR Dr. Braxton Arceo ESTIMATED BLOOD LOSS Minimal. OPERATIVE FINDINGS This patient had a diverting loop ileostomy for a low anterior resection done for a rectal cancer. At surgery, the ileostomy was mobilized and closed resecting a portion of the small bowel. OPERATIVE TECHNIQUE The patient placed on table in spine position after adequate general endotracheal anesthesia. The ileostomy had been previously closed with a simple running Vicryl suture to close the orifice so that there was no contamination. The abdomen was then prepped and draped in usual manner. Elliptical vertical skin incision was made in the skin and down through the subcutaneous tissue and the ileostomy was mobilized from the rectus muscle and the peritoneum and eventually mobilized to have enough length to close. The proximal ileum was then divided with an Ethicon JONNY 55 stapling device and then the distal ileum was divided between Magda clamps and the mesentery was clamped, cut and ligated and the small bowel was anastomosed using Ethicon JONNY 55 stapling device along the antimesenteric borders of the bowel. The enterotomy was then closed with a TX 60 stapling device blue staple height. Once this was done, the opening in the mesentery was approximated with running 3-0 Vicryl suture. Hemostasis was maintained throughout with electrocautery and ligature. The bowels were replaced in the abdominal cavity and the abdominal cavity was closed in layers using a single stranded #1 PDS for the posterior rectus sheath and a single strand #1 PDS for the anterior rectus sheath. Subcutaneous tissue was irrigated thoroughly with a liter of saline solution, aspirated dry and then the skin was closed with running 3-0 Vicryl subcuticular suture and dressing was applied. Sponge, needle and instrument counts were reported as correct. Estimated blood loss was minimal. Operating time was 35 minutes. The patient tolerated the procedure well and left the operating room in good condition. MD ANTOINETTE Almodovar/ /3:37 PM /9:45 PM
[2016-07-08] MEDS: METOCLOPRAMIDE HCL 10 MG/2 ML VIAL IVS SCH ×5 (00:33→23:15)
[2016-07-08] MEDS: D5-LR + KCL 20 MEQ INJ 1,000 ML IV SCH ×3 (05:20→20:26)
[2016-07-08] MEDS: INSULIN NovoLIN REGULAR SUPPLEMENTAL SCALE SQ SCH ×4 (06:28→20:24)
[2016-07-08 06:59] LABS: AUTOMATED NEUTROPHIL # 4.9 TH/MM3 (1.8-7.7); BASOPHIL % 0.5 % (0.0-2.0); EOSINOPHIL # 0.2 TH/MM3 (0-0.4); HEMATOCRIT 31.2 % (39.0-51.0); HEMO FLAGS DIFF FINAL; LYMPH % 7.3 % (9.0-44.0); LYMPHOCYTE # 0.4 TH/MM3 (1.0-4.8); MEAN CELL VOLUME 78.3 FL (80.0-100.0); MEAN CORPUSCULAR HEMOGLOBIN 25.8 PG (27.0-34.0); MONO % 8.9 % (0.0-8.0); NEUT % 80.3 % (16.0-70.0); PLATELET COUNT 155 TH/MM3 (150-450); RED BLOOD COUNT 3.98 MIL/MM3 (4.50-5.90); RED CELL DISTRIBUTION WIDTH 15.2 % (11.6-17.2); WHITE BLOOD COUNT 6.2 TH/MM3 (4.0-11.0)
[2016-07-08 07:57] LABS: BICARBONATE 27.8 MEQ/L (21.0-32.0); POTASSIUM 4.1 MEQ/L (3.5-5.1)
[2016-07-08 08:00] VITALS: BP 140/73; PULSE 89; RESP 16; TEMP 97; O2SAT 98
[2016-07-08] MEDS: ALVIMOPAN 12 MG CAPSULE - Post-op dosing PO SCH ×2 (09:10→20:24)
[2016-07-08] MEDS: PANTOPRAZOLE SODIUM 40 MG VIAL IVP SCH (09:10)
[2016-07-08] MEDS: SODIUM CHLORIDE 0.9% FLUSH 10 ML FLUSH IV FLUSH SCH ×2 (09:13→20:24)
[2016-07-08 12:00] VITALS: BP 163/80; PULSE 91; RESP 17; TEMP 96.4; O2SAT 98
[2016-07-08 16:00] VITALS: BP 147/77; PULSE 92; RESP 17; TEMP 96.8; O2SAT 97
[2016-07-08 20:00] VITALS: BP 139/86; PULSE 95; RESP 18; TEMP 97.9; O2SAT 95
--- NOTE | 2016-07-08 22:57 | HHI.PR ---
Subjective Remarks C/R Surg POD# 2 afebrile, VSS dry heaves gone voiding OK +BM Objective - Vital Signs Date Time Temp Pulse Resp B/P Pulse Ox O2 Delivery O2 Flow Rate FiO2 07/08/16 20:00 97.9 95 18 139/86 95 07/06/16 19:00 Nasal Cannula 2 Result Diagram: 07/08/16 0600 07/08/16 0600 Objective Remarks PE Abd - full, min tympany, wound dry A/P Assessment and Plan Imp: OOB try PO slowly' DC plans Mario Shah MD July 08, 2016 22:57
[2016-07-08 23:56] VITALS: BP 166/86; PULSE 82; RESP 18; TEMP 98.4; O2SAT 98
[2016-07-09] MEDS: METOCLOPRAMIDE HCL 10 MG/2 ML VIAL IVS SCH (06:16)
[2016-07-09] MEDS: INSULIN NovoLIN REGULAR SUPPLEMENTAL SCALE SQ SCH (06:16)
[2016-07-09 08:00] VITALS: BP 139/78; PULSE 91; RESP 16; TEMP 96.6; O2SAT 97
[2016-07-09] MEDS: SODIUM CHLORIDE 0.9% FLUSH 10 ML FLUSH IV FLUSH SCH (08:23)
[2016-07-09] MEDS: ALVIMOPAN 12 MG CAPSULE - Post-op dosing PO SCH (08:23)
[2016-07-09] MEDS: PANTOPRAZOLE SODIUM 40 MG VIAL IVP SCH (08:24)
[2016-07-09] MEDS ORDERED: HYDR-3516 PO (08:50)
--- NOTE | 2016-07-09 09:39 | HHI.PR ---
Subjective Remarks C/R Surg POD# 3 afebrile, VSS dry heaves gone voiding OK +BM Objective - Vital Signs Date Time Temp Pulse Resp B/P Pulse Ox O2 Delivery O2 Flow Rate FiO2 07/09/16 08:00 96.6 91 16 139/78 97 07/06/16 19:00 Nasal Cannula 2 Result Diagram: 07/08/16 0600 07/08/16 0600 Objective Remarks PE Abd - full, min tympany, wound dry A/P Assessment and Plan Imp: OOB try PO slowly' DC plans Mario Shah MD July 09, 2016 09:39
--- NOTE | 2016-08-09 11:37 | MD ---
cc: ABBE CHAPPELL M.D. ADMISSION DATE: 07/06/2016 DISCHARGE DATE: 07/09/2016 ADMITTING DIAGNOSIS Diverting loop ileostomy. DISCHARGE DIAGNOSIS Diverting loop ileostomy. OPERATIVE PROCEDURE 07/06/2016 Small bowel resection with closure of ileostomy. HISTORY This patient had a diverting loop ileostomy done for a low anterior resection which was done for a rectal cancer. For this reason closure of the ileostomy was recommended. HOSPITAL COURSE The patient was admitted to the hospital on 07/06/2016 and underwent small bowel resection with closure of his ileostomy. On the first postoperative day he did well and was given clear liquids. On the second postoperative day he was given full liquids and on the third postoperative day he was given a regular diet he was discharged from the hospital on postoperative day #3. DISCHARGE INSTRUCTIONS He was instructed to do no driving for 2 weeks. He was instructed to do no heavy lifting over 10 pounds for 6 weeks. He was instructed to call me with any problems. He was instructed to follow-up with me in the office in 2 weeks' time. Abbe Chappell MD JRAFAT/AXEL /9:17 PM /11:34 AM
== END 2016-07-09 10:48 | disposition home or self-care (01) | DRG 330 ==
LOC: HSDI 07-06 10:18 → HCIS 07-06 19:39 → N07B 07-07 14:57
PROVIDERS: ADMIT Colon & Rectal Surgery; ATTEND Colon & Rectal Surgery
PROC: 0DQB0ZZ Repair Ileum, Open Approach (ICD-10-PCS; principal; 2016-07-06 13:31)
DX: Z43.2 Encounter for attention to ileostomy (principal); C20 Malignant neoplasm of rectum; E11.9 Type 2 diabetes mellitus without complications; Z79.84 Long term (current) use of oral hypoglycemic drugs; Z86.73 Personal history of transient ischemic attack (TIA), and cerebral infarction without residual deficits
CPT/HCPCS: 80048; 82948; 85025; 86850; 86900; 86901; 88304; 88307; 94150; C9113; J0690; J1885; J2250; J2270; J2370; J2405; J2710; J2765; J3010; J3480; J7120